=== PATIENT | male | born 1950 | race Caucasian/White ===

== ENCOUNTER 2017-01-05 04:26 | Inpatient (IN) | payer OTHER ==
[2017-01-04 14:10] LABS: PATH.CAST-FLAG NOT PRESENT; SPERM-FLAG NOT PRESENT; SRC-FLAG NOT PRESENT; XTAL-FLAG NOT PRESENT; YLC-FLAG NOT PRESENT
[2017-01-04 14:16] LABS: ASPARTATE AMINO TRANSFERASE 18 U/L (15-37); BLOOD UREA NITROGEN 19 mg/dL (7-18)
[~2017-01-05] VITALS: Ht 182.9 cm; Wt 103.8 kg
[~2017-01-05 04:26] MED LIST: LEVO750T26 PO; OXYC-302 PO; PHEN100C PO
[2017-01-05] MEDS ORDERED: ALBUMIN HUMAN 5% 500 ML IV ONE (05:00)
[2017-01-05] MEDS ORDERED: CHLORHEXIDINE MOUTHWASH 15 ML UDC MM SCH (05:00)
[2017-01-05] MEDS ORDERED: DO NOT GIVE MC SCH (05:00)
[2017-01-05 05:11] VITALS: BP_SYST 162; BP_SYST 163; BP_DIAS 88; BP_DIAS 89
[2017-01-05] MEDS ORDERED: MUPIROCIN OINT 2%, 22GM TP ONE (05:30)
[2017-01-05] MEDS ORDERED: INSULIN ASPART 100 UNITS/ML, PEN SQ-INSULIN SCH (06:00)
[2017-01-05] MEDS: SODIUM CHLORIDE FLUSH 10ML SYR IVF SCH ×3 (06:15→21:32)
[2017-01-05] MEDS ORDERED: MIDAZOLAM 10MG/2 ML ONE (06:47)
[2017-01-05] MEDS ORDERED: FENTANYL PF 1000 MCG/20ML ONE (06:47)
[2017-01-05] MEDS ORDERED: ROCURONIUM 10 MG/ML ONE (07:27)
[2017-01-05] MEDS ORDERED: PROPOFOL 10 MG/ML, 20ML ONE (07:27)
[2017-01-05] MEDS ORDERED: EPINEPHRINE 2 MG in SODIUM CHLORIDE 0.9% 248 ML IV SCH (07:30)
[2017-01-05] MEDS ORDERED: POTASSIUM CHLORIDE 80 MEQ, SODIUM BICARBONATE 8.4% 10 MEQ, MAGNESIUM SULFATE 0.5 GM, LI... IV PRN (07:30)
[2017-01-05] MEDS ORDERED: CEFUROXIME 1.5 GM in SODIUM CHLORIDE 0.9% 50 ML IVPB PRN (07:30)
[2017-01-05] MEDS ORDERED: PHENYLEPHRINE 10 MG in SODIUM CHLORIDE 0.9% 249 ML IV PRN ×2 (07:30→11:41)
[2017-01-05] MEDS ORDERED: DEXMEDETOMIDINE 200 MCG in SODIUM CHLORIDE 0.9% 48 ML IV SCH (07:30)
[2017-01-05] MEDS ORDERED: MANNITOL PMX 20% 500 ML IVPB PRN (07:30)
[2017-01-05] MEDS ORDERED: REGULAR INSULIN 62.5 UNITS in SODIUM CHLORIDE 0.9% 249.375 ML IV PRN ×2 (07:30→11:41)
[2017-01-05] MEDS ORDERED: VANCOMYCIN 1,600 MG in SODIUM CHLORIDE 0.9% 250 ML IV PRN (07:30)
[2017-01-05] MEDS ORDERED: FENTANYL PF 250 MCG/5ML ONE (09:26)
[2017-01-05] MEDS ORDERED: CLEVIDIPINE 50 ML IV ONE (10:12)
[2017-01-05] MEDS ORDERED: CLEVIDIPINE 50 ML IV PRN (11:41)
[2017-01-05] MEDS ORDERED: SODIUM CHLORIDE 0.9% 1,000 ML IV PRN (11:41)
[2017-01-05] MEDS ORDERED: NITROGLYCERIN/D5W PMX 250 ML IV PRN (11:41)
[2017-01-05] MEDS ORDERED: DOBUTAMINE 250 MG in SODIUM CHLORIDE 0.9% 230 ML IV PRN (11:41)
[2017-01-05] MEDS ORDERED: DEXMEDETOMIDINE 200 MCG in SODIUM CHLORIDE 0.9% 48 ML IV PRN (11:41)
[2017-01-05] MEDS ORDERED: CALCIUM CHLORIDE 10%, 10ML SYR ONE (12:00)
[2017-01-05] MEDS ORDERED: BISACODYL 10 MG SUPP PR PRN (12:00)
[2017-01-05] MEDS ORDERED: ALBUMIN HUMAN 25% 50 ML ONE (12:00)
[2017-01-05] MEDS ORDERED: GLUCAGON 1 MG IM PRN (12:00)
[2017-01-05] MEDS ORDERED: MEPERIDINE/PF 25MG/0.5ML IVPush PRN (12:00)
[2017-01-05] MEDS ORDERED: BISACODYL 5 MG EC TABLET PO PRN (12:00)
[2017-01-05] MEDS ORDERED: LACTATED RINGERS 500 ML IV PRN (12:00)
[2017-01-05] MEDS ORDERED: SODIUM BICARB 8.4%, 50ML SYRINGE ONE (12:00)
[2017-01-05] MEDS ORDERED: EPINEPHRINE 2 MG in SODIUM CHLORIDE 0.9% 248 ML IV PRN (12:00)
[2017-01-05] MEDS ORDERED: ONDANSETRON 2MG/ML, 2ML IVPush PRN (12:00)
[2017-01-05] MEDS ORDERED: PROCHLORPERAZINE 5 MG/ML, 2ML IVPush PRN (12:00)
[2017-01-05] MEDS: KSCALE TO 4.5 IV SCH ×3 (12:00→23:57)
[2017-01-05] MEDS ORDERED: DEXTROSE 50%, 50ML SYRINGE IVPush PRN (12:00)
[2017-01-05] MEDS ORDERED: PROTAMINE SULFATE 10 MG/ML, 25ML ONE (12:00)
[2017-01-05] MEDS ORDERED: ACETAMINOPHEN 650 MG SUPP PR PRN (12:00)
[2017-01-05] MEDS ORDERED: DEXTROSE 4 GM TAB.CHEW PO PRN (12:00)
[2017-01-05] MEDS ORDERED: AMIODARONE 50 MG/ML, 3ML ONE (12:01)
[2017-01-05] MEDS ORDERED: HEPARIN 1,000 UNITS/ML, 30ML ONE (12:01)
[2017-01-05] MEDS ORDERED: LIDOCAINE 2% 100MG/5ML SYRINGE ONE (12:01)
[2017-01-05] MEDS ORDERED: AMINOCAPROIC ACID 250 MG/ML, 20ML ONE (12:01)
[2017-01-05] MEDS ORDERED: SODIUM BICARBONATE 1 MEQ/ML, 50ML VIAL ONE (12:01)
[2017-01-05] MEDS ORDERED: methylPREDNISolone SOD SUCC 125 MG/2 ML ONE (12:02)
[2017-01-05 12:17] LABS: ABG COLLECTION SITE ARTERIAL LINE
[2017-01-05] MEDS ORDERED: POTASSIUM CHLORIDE PMX 100 ML IV ONE (13:00)
[2017-01-05] MEDS: SODIUM BICARB 8.4%, 50ML SYRINGE IV PRN ×3 (13:02→15:13)
[2017-01-05] MEDS: MAGNESIUM SULFATE 1 GM in SODIUM CHLORIDE 0.9% 50 ML IVPB SCH (13:17)
[2017-01-05] MEDS: MIDAZOLAM 1 MG/ML, 5ML IVPush PRN ×4 (14:22→23:13)
[2017-01-05] MEDS: morphine SULFATE 10 MG/ML, 1ML IVPush PRN ×5 (14:22→23:12)
[2017-01-05] MEDS ORDERED: FUROSEMIDE 20 MG/2 ML ONE (15:12)
[2017-01-05] MEDS ORDERED: FUROSEMIDE 20 MG/2 ML IV ONE (15:30)
[2017-01-05] MEDS: DEXMEDETOMIDINE 400 MCG in SODIUM CHLORIDE 0.9% 96 ML IV PRN (18:14)
[2017-01-05] MEDS: CEFUROXIME 1.5 GM in SODIUM CHLORIDE 0.9% 50 ML IVPB SCH (19:38)
[2017-01-05] MEDS: VANCOMYCIN 1,600 MG in SODIUM CHLORIDE 0.9% 250 ML IVPB SCH (20:38)
[2017-01-05] MEDS: DOCUSATE 100 MG CAPSULE PO SCH (21:00)
[2017-01-05] MEDS: HYDROcodone/APAP 10/325 MG TABLET PO PRN (21:11)
[2017-01-05] MEDS: MUPIROCIN OINT 2%, 22GM NAS SCH (21:32)
[2017-01-05] MEDS ORDERED: LIDOCAINE 1%, 10ML INFIL ONE (23:30)
[2017-01-05] MEDS: ALBUTEROL/IPRATROPIUM 2.5MG/0.5MG, 3 ML NPPB SCH (23:30)
[2017-01-05 23:38] LABS: ABG COLLECTION SITE NOT DOCUMENTED
[2017-01-06] MEDS ORDERED: FUROSEMIDE 40 MG/4 ML IV ONE ×2 (00:30→08:00)
[2017-01-06] MEDS ORDERED: FUROSEMIDE 40 MG/4 ML ONE (00:37)
[2017-01-06] MEDS: HYDROcodone/APAP 10/325 MG TABLET PO PRN ×3 (00:41→15:54)
[2017-01-06] MEDS: morphine SULFATE 10 MG/ML, 1ML IVPush PRN ×9 (00:42→23:34)
[2017-01-06] MEDS: MIDAZOLAM 1 MG/ML, 5ML IVPush PRN ×5 (00:42→13:13)
[2017-01-06] MEDS: DEXMEDETOMIDINE 400 MCG in SODIUM CHLORIDE 0.9% 96 ML IV PRN ×3 (01:06→08:38)
[2017-01-06] MEDS ORDERED: LIDOCAINE 1%, 2ML ENDO PRN (01:30)
[2017-01-06] MEDS: ALBUTEROL/IPRATROPIUM 2.5MG/0.5MG, 3 ML NPPB SCH ×6 (03:30→23:08)
[2017-01-06 05:00] VITALS: BP 119/61
[2017-01-06 05:25] LABS: ABG COLLECTION SITE NOT DOCUMENTED
[2017-01-06 05:49] LABS: BLOOD UREA NITROGEN 23 mg/dL (7-18)
[2017-01-06] MEDS: KSCALE TO 4.5 IV SCH ×3 (06:00→18:00)
[2017-01-06] MEDS: CEFUROXIME 1.5 GM in SODIUM CHLORIDE 0.9% 50 ML IVPB SCH (06:27)
[2017-01-06] MEDS ORDERED: POTASSIUM CHLORIDE PMX 100 ML IV ONE (06:30)
[2017-01-06 06:45] LABS: DIFF TOTAL CELLS COUNTED 100 CELL DIFF
[2017-01-06 06:47] LABS: LARGE PLATELETS 1+; VERIFY COUNTS? YES
[2017-01-06] MEDS ORDERED: CALCIUM CHLORIDE 13.6 MEQ in SODIUM CHLORIDE 0.9% 100 ML IV ONE (08:00)
[2017-01-06] MEDS: VANCOMYCIN 1,600 MG in SODIUM CHLORIDE 0.9% 250 ML IVPB SCH (08:38)
[2017-01-06] MEDS: CHLORHEXIDINE MOUTHWASH 15 ML UDC MM SCH ×2 (09:00→20:20)
[2017-01-06] MEDS: SODIUM CHLORIDE FLUSH 10ML SYR IVF SCH ×4 (09:00→20:20)
[2017-01-06] MEDS: ASPIRIN 81 MG TABLET EC PO SCH (09:00)
[2017-01-06] MEDS: DOCUSATE 100 MG CAPSULE PO SCH ×2 (09:00→20:21)
[2017-01-06] MEDS: PANTOPRAZOLE 40 MG IV IVPush SCH (09:35)
[2017-01-06] MEDS: MUPIROCIN OINT 2%, 22GM NAS SCH ×2 (09:35→20:21)
[2017-01-06] MEDS: CEFTRIAXONE PMX 1GM/50ML 50 ML IV SCH (10:02)
[2017-01-06] MEDS: MAGNESIUM SULFATE 1 GM in SODIUM CHLORIDE 0.9% 50 ML IVPB SCH (13:33)
[2017-01-06] MEDS: PROPOFOL 100 ML IV PRN ×3 (15:02→23:21)
[2017-01-06] MEDS: PHENYTOIN 125 MG/5 ML ORAL SUSP NG SCH ×2 (15:11→20:20)
[2017-01-06] MEDS: INSULIN ASPART 100 UNITS/ML, PEN SQ-INSULIN PRN ×2 (16:33→23:34)
[2017-01-06] MEDS ORDERED: WARFARIN 5 MG TABLET PO-COUM ONE (18:00)
[2017-01-06] MEDS ORDERED: PHENYTOIN 100 MG CAPSULE PO SCH (21:00)
[2017-01-07] MEDS: ALBUTEROL/IPRATROPIUM 2.5MG/0.5MG, 3 ML NPPB SCH ×6 (02:41→22:31)
[2017-01-07] MEDS: MIDAZOLAM 1 MG/ML, 5ML IVPush PRN (03:03)
[2017-01-07] MEDS: morphine SULFATE 10 MG/ML, 1ML IVPush PRN (03:04)
[2017-01-07 04:18] LABS: ABG COLLECTION SITE RIGHT RADIAL; COLLATERAL CIRCULATION TESTING NORMAL
[2017-01-07] MEDS: INSULIN ASPART 100 UNITS/ML, PEN SQ-INSULIN PRN ×3 (04:45→23:16)
[2017-01-07 04:51] LABS: BLOOD UREA NITROGEN 29 mg/dL (7-18)
[2017-01-07 05:00] VITALS: BP 122/60
[2017-01-07] MEDS: PROPOFOL 100 ML IV PRN ×5 (05:48→21:51)
[2017-01-07] MEDS: SODIUM CHLORIDE FLUSH 10ML SYR IVF SCH ×4 (09:00→21:07)
[2017-01-07] MEDS: ASPIRIN 81 MG TABLET EC PO SCH (09:00)
[2017-01-07] MEDS: CHLORHEXIDINE MOUTHWASH 15 ML UDC MM SCH ×2 (09:00→21:00)
[2017-01-07] MEDS: DOCUSATE 100 MG CAPSULE PO SCH ×2 (09:00→21:00)
[2017-01-07] MEDS ORDERED: POTASSIUM CHLORIDE 20 MEQ PACKET PO ONE (09:55)
[2017-01-07] MEDS ORDERED: FUROSEMIDE 40 MG/4 ML ONE (09:56)
[2017-01-07] MEDS ORDERED: FUROSEMIDE 40 MG/4 ML IV ONE (10:00)
[2017-01-07] MEDS: HYDROcodone/APAP 10/325 MG TABLET PO PRN (10:04)
[2017-01-07] MEDS: PANTOPRAZOLE 40 MG IV IVPush SCH (10:17)
[2017-01-07] MEDS: MUPIROCIN OINT 2%, 22GM NAS SCH ×2 (10:17→21:00)
[2017-01-07] MEDS: CEFTRIAXONE PMX 1GM/50ML 50 ML IV SCH (10:17)
[2017-01-07] MEDS: PHENYTOIN 125 MG/5 ML ORAL SUSP NG SCH ×2 (10:18→21:07)
[2017-01-07] MEDS: MAGNESIUM SULFATE 1 GM in SODIUM CHLORIDE 0.9% 50 ML IVPB SCH (13:55)
[2017-01-07] MEDS: ACETAMINOPHEN 325 MG TABLET PO PRN (16:22)
[2017-01-07] MEDS: POTASSIUM CHLORIDE 20 MEQ PACKET PO SCH (17:39)
[2017-01-07] MEDS: FUROSEMIDE 40 MG/4 ML IV SCH (17:39)
[2017-01-07] MEDS ORDERED: WARFARIN 5 MG TABLET PO-COUM ONE (18:00)
[2017-01-08] MEDS: morphine SULFATE 10 MG/ML, 1ML IVPush PRN (01:27)
[2017-01-08] MEDS: PROPOFOL 100 ML IV PRN ×2 (02:34→06:14)
[2017-01-08] MEDS: ALBUTEROL/IPRATROPIUM 2.5MG/0.5MG, 3 ML NPPB SCH ×5 (03:07→22:48)
[2017-01-08 04:48] LABS: ABG COLLECTION SITE LEFT RADIAL; COLLATERAL CIRCULATION TESTING NORMAL
[2017-01-08 05:02] VITALS: BP 135/77
[2017-01-08 05:11] LABS: BLOOD UREA NITROGEN 28 mg/dL (7-18)
[2017-01-08] MEDS: INSULIN ASPART 100 UNITS/ML, PEN SQ-INSULIN PRN ×2 (05:28→23:23)
[2017-01-08] MEDS: SODIUM CHLORIDE FLUSH 10ML SYR IVF SCH ×4 (08:12→21:16)
[2017-01-08] MEDS: DOCUSATE 100 MG CAPSULE PO SCH ×2 (08:53→21:16)
[2017-01-08] MEDS: PANTOPRAZOLE 40 MG IV IVPush SCH (08:53)
[2017-01-08] MEDS: PHENYTOIN 125 MG/5 ML ORAL SUSP NG SCH ×2 (08:53→21:16)
[2017-01-08] MEDS: ASPIRIN 81 MG TABLET EC PO SCH (08:54)
[2017-01-08] MEDS: POTASSIUM CHLORIDE 20 MEQ PACKET PO SCH ×2 (08:54→18:41)
[2017-01-08] MEDS: FUROSEMIDE 40 MG/4 ML IV SCH ×2 (08:54→18:44)
[2017-01-08] MEDS: CEFTRIAXONE PMX 1GM/50ML 50 ML IV SCH (08:55)
[2017-01-08] MEDS: MUPIROCIN OINT 2%, 22GM NAS SCH ×2 (08:55→21:00)
[2017-01-08] MEDS: LISINOPRIL 5 MG TABLET PO SCH (10:00)
[2017-01-08] MEDS ORDERED: POTASSIUM CHLORIDE 20 MEQ TAB.ER.PRT PO ONE (10:30)
[2017-01-08] MEDS: HYDROcodone/APAP 10/325 MG TABLET PO PRN ×3 (10:32→22:04)
[2017-01-08] MEDS: LORazepam 2 MG/ML, 1ML IVPush PRN ×2 (12:43→20:22)
[2017-01-08] MEDS ORDERED: AMIODARONE 150 MG in DEXTROSE 5% 100 ML IV ONE ×2 (13:30→18:00)
[2017-01-08] MEDS ORDERED: AMIODARONE 900 MG in DEXTROSE 5% 482 ML IV PRN (13:30)
[2017-01-08] MEDS ORDERED: FILTER 0.22 MICRON IV PRN (14:00)
[2017-01-08] MEDS ORDERED: WARFARIN 7.5 MG TABLET PO-COUM ONE (18:00)
[2017-01-08] MEDS ORDERED: METOPROLOL 1 MG/ML, 5ML IVPush ONE (20:00)
[2017-01-08] MEDS: ACETAMINOPHEN 325 MG TABLET PO PRN (22:04)
[2017-01-09] MEDS: ALBUTEROL/IPRATROPIUM 2.5MG/0.5MG, 3 ML NPPB SCH ×6 (02:22→22:52)
[2017-01-09] MEDS: HYDROcodone/APAP 10/325 MG TABLET PO PRN ×2 (02:59→12:43)
[2017-01-09 04:47] LABS: BLOOD UREA NITROGEN 32 mg/dL (7-18)
[2017-01-09 05:00] VITALS: BP 142/83
[2017-01-09] MEDS: INSULIN ASPART 100 UNITS/ML, PEN SQ-INSULIN PRN (05:27)
[2017-01-09] MEDS: POTASSIUM CHLORIDE 20 MEQ PACKET PO SCH ×2 (07:59→18:09)
[2017-01-09] MEDS: FUROSEMIDE 40 MG/4 ML IV SCH ×2 (07:59→18:09)
[2017-01-09] MEDS: SODIUM CHLORIDE FLUSH 10ML SYR IVF SCH ×5 (08:00→20:13)
[2017-01-09] MEDS ORDERED: MAGNESIUM HYDROXIDE 8%, 30ML UDC PO PRN (08:30)
[2017-01-09] MEDS: OXYcodone IR 5MG TABLET PO PRN ×2 (09:35→15:02)
[2017-01-09] MEDS: PHENYTOIN 100 MG CAPSULE PO SCH ×2 (09:36→21:00)
[2017-01-09] MEDS: ASPIRIN 81 MG TABLET EC PO SCH (09:36)
[2017-01-09] MEDS: DOCUSATE 100 MG CAPSULE PO SCH ×2 (09:37→20:13)
[2017-01-09] MEDS: METOPROLOL TARTRATE 25 MG TABLET PO SCH ×2 (09:37→18:09)
[2017-01-09] MEDS: LISINOPRIL 10 MG TABLET PO SCH ×2 (09:37→20:21)
[2017-01-09] MEDS: AMIODARONE 200 MG TABLET PO SCH ×2 (09:38→20:14)
[2017-01-09] MEDS: CEFTRIAXONE PMX 1GM/50ML 50 ML IV SCH (10:17)
[2017-01-09] MEDS: MUPIROCIN OINT 2%, 22GM NAS SCH ×2 (10:18→20:13)
[2017-01-09] MEDS ORDERED: WARFARIN 10 MG TABLET PO-COUM ONE (18:00)
[2017-01-09] MEDS: LISINOPRIL 5 MG TABLET PO SCH (20:15)
[2017-01-10] MEDS ORDERED: ALBUTEROL/IPRATROPIUM 2.5MG/0.5MG, 3 ML NPPB PRN (01:30)
[2017-01-10 04:00] VITALS: BP 125/70
[2017-01-10 04:28] LABS: BLOOD UREA NITROGEN 42 mg/dL (7-18)
[2017-01-10] MEDS: METOPROLOL TARTRATE 25 MG TABLET PO SCH ×2 (05:27→18:38)
[2017-01-10] MEDS: ALBUTEROL/IPRATROPIUM 2.5MG/0.5MG, 3 ML NPPB SCH ×4 (06:47→21:10)
[2017-01-10 08:00] VITALS: BP 125/75
[2017-01-10] MEDS: FUROSEMIDE 40 MG/4 ML IV SCH ×2 (08:01→17:47)
[2017-01-10] MEDS: AMIODARONE 200 MG TABLET PO SCH ×2 (08:01→21:33)
[2017-01-10] MEDS: POTASSIUM CHLORIDE 20 MEQ PACKET PO SCH ×2 (08:01→17:00)
[2017-01-10] MEDS: SODIUM CHLORIDE FLUSH 10ML SYR IVF SCH ×6 (08:02→21:33)
[2017-01-10] MEDS: PHENYTOIN 100 MG CAPSULE PO SCH ×2 (08:02→21:00)
[2017-01-10] MEDS: MUPIROCIN OINT 2%, 22GM NAS SCH (08:02)
[2017-01-10] MEDS: ASPIRIN 81 MG TABLET EC PO SCH (08:03)
[2017-01-10] MEDS: DOCUSATE 100 MG CAPSULE PO SCH ×2 (08:03→21:00)
[2017-01-10] MEDS: LISINOPRIL 10 MG TABLET PO SCH ×2 (08:03→21:35)
[2017-01-10] MEDS ORDERED: HOLD COUMADIN MC PRN (08:30)
[2017-01-10] MEDS: HYDROcodone/APAP 10/325 MG TABLET PO PRN (09:30)
[2017-01-10] MEDS ORDERED: CALCIUM CARBONATE 500 MG TAB.CHEW PO PRN (09:30)
[2017-01-10] MEDS: KETOROLAC 30 MG/1 ML IVPush SCH ×3 (09:30→21:30)
[2017-01-10] MEDS: CEFTRIAXONE PMX 1GM/50ML 50 ML IV SCH (09:30)
[2017-01-10 14:57] VITALS: BP 120/73
[2017-01-10] MEDS ORDERED: LOPERAMIDE 2 MG CAPSULE PO PRN (17:30)
[2017-01-10 20:03] VITALS: BP 125/65
[2017-01-11 04:00] VITALS: BP 116/69
[2017-01-11] MEDS: KETOROLAC 30 MG/1 ML IVPush SCH ×2 (04:38→09:04)
[2017-01-11] MEDS: METOPROLOL TARTRATE 25 MG TABLET PO SCH ×2 (06:16→16:55)
[2017-01-11 06:39] VITALS: BP 135/79
[2017-01-11 06:47] LABS: BLOOD UREA NITROGEN 46 mg/dL (7-18)
[2017-01-11] MEDS: ALBUTEROL/IPRATROPIUM 2.5MG/0.5MG, 3 ML NPPB SCH (07:00)
[2017-01-11] MEDS: LISINOPRIL 10 MG TABLET PO SCH ×2 (08:59→21:09)
[2017-01-11] MEDS: DOCUSATE 100 MG CAPSULE PO SCH ×2 (09:00→21:00)
[2017-01-11] MEDS: SODIUM CHLORIDE FLUSH 10ML SYR IVF SCH ×6 (09:00→21:09)
[2017-01-11] MEDS: PHENYTOIN 100 MG CAPSULE PO SCH ×2 (09:00→21:08)
[2017-01-11] MEDS: ASPIRIN 81 MG TABLET EC PO SCH (09:00)
[2017-01-11] MEDS: AMIODARONE 200 MG TABLET PO SCH ×2 (09:01→21:09)
[2017-01-11] MEDS: CEFTRIAXONE PMX 1GM/50ML 50 ML IV SCH (09:03)
[2017-01-11] MEDS: POTASSIUM CHLORIDE 20 MEQ PACKET PO SCH ×2 (09:03→16:50)
[2017-01-11] MEDS: FUROSEMIDE 40 MG/4 ML IV SCH ×2 (09:03→16:49)
[2017-01-11] MEDS: CHLORHEXIDINE MOUTHWASH 15 ML UDC MM SCH ×3 (13:52→21:10)
[2017-01-11 14:24] VITALS: BP 137/69
[2017-01-11] MEDS ORDERED: ALBUTEROL/IPRATROPIUM 2.5MG/0.5MG, 3 ML NPPB PRN (14:30)
[2017-01-11] MEDS: HYDROcodone/APAP 10/325 MG TABLET PO PRN (16:49)
[2017-01-11 18:49] VITALS: BP 145/76
[2017-01-11] MEDS: OXYcodone IR 5MG TABLET PO PRN (19:40)
[2017-01-11 21:03] VITALS: BP 114/64
[2017-01-12 01:32] VITALS: BP 123/74
[2017-01-12] MEDS: HYDROcodone/APAP 10/325 MG TABLET PO PRN ×3 (02:51→22:35)
[2017-01-12 05:51] VITALS: BP 110/67
[2017-01-12 06:07] LABS: BLOOD UREA NITROGEN 35 mg/dL (7-18)
[2017-01-12 06:55] VITALS: BP 146/75
[2017-01-12] MEDS: DOCUSATE 100 MG CAPSULE PO SCH ×2 (09:00→22:43)
[2017-01-12] MEDS: SODIUM CHLORIDE FLUSH 10ML SYR IVF SCH ×6 (09:00→22:43)
[2017-01-12] MEDS: POTASSIUM CHLORIDE 20 MEQ PACKET PO SCH ×2 (09:11→17:06)
[2017-01-12] MEDS: PHENYTOIN 100 MG CAPSULE PO SCH ×2 (09:12→22:42)
[2017-01-12] MEDS: ASPIRIN 81 MG TABLET EC PO SCH (09:12)
[2017-01-12] MEDS: LISINOPRIL 10 MG TABLET PO SCH ×2 (09:12→22:42)
[2017-01-12] MEDS: METOPROLOL TARTRATE 25 MG TABLET PO SCH ×2 (09:12→17:06)
[2017-01-12] MEDS: CHLORHEXIDINE MOUTHWASH 15 ML UDC MM SCH ×3 (09:13→22:43)
[2017-01-12] MEDS: AMIODARONE 200 MG TABLET PO SCH ×2 (09:13→22:43)
[2017-01-12] MEDS: FUROSEMIDE 40 MG/4 ML IV SCH ×2 (09:13→17:06)
[2017-01-12] MEDS: CEFTRIAXONE PMX 1GM/50ML 50 ML IV SCH (09:13)
[2017-01-12] MEDS ORDERED: POTASSIUM CHLORIDE 20 MEQ TAB.ER.PRT PO ONE (09:30)
[2017-01-12 13:32] VITALS: BP 122/71
[2017-01-12] MEDS ORDERED: WARFARIN 1 MG TABLET PO-COUM SCH (18:00)
[2017-01-12 19:09] VITALS: BP 117/70
[2017-01-13 01:19] VITALS: BP 133/71
[2017-01-13] MEDS: METOPROLOL TARTRATE 25 MG TABLET PO SCH (05:17)
[2017-01-13 06:39] LABS: BLOOD UREA NITROGEN 30 mg/dL (7-18)
[2017-01-13 06:50] VITALS: BP 112/66
[2017-01-13] MEDS: CHLORHEXIDINE MOUTHWASH 15 ML UDC MM SCH (08:02)
[2017-01-13] MEDS: ASPIRIN 81 MG TABLET EC PO SCH (08:03)
[2017-01-13] MEDS: PHENYTOIN 100 MG CAPSULE PO SCH (08:03)
[2017-01-13] MEDS: LISINOPRIL 10 MG TABLET PO SCH (08:03)
[2017-01-13] MEDS: DOCUSATE 100 MG CAPSULE PO SCH (08:04)
[2017-01-13] MEDS: FUROSEMIDE 40 MG/4 ML IV SCH (08:04)
[2017-01-13] MEDS: SODIUM CHLORIDE FLUSH 10ML SYR IVF SCH ×3 (08:04→08:05)
[2017-01-13] MEDS: POTASSIUM CHLORIDE 20 MEQ PACKET PO SCH (08:04)
[2017-01-13] MEDS: AMIODARONE 200 MG TABLET PO SCH (08:04)
[2017-01-13] MEDS ORDERED: METO25TA35 PO (09:15)
[2017-01-13] MEDS ORDERED: AMIO200T42 PO (09:15)
[2017-01-13] MEDS ORDERED: POTA20PA8 PO (09:15)
[2017-01-13] MEDS ORDERED: ASPI-621 PO (09:15)
[2017-01-13] MEDS ORDERED: FURO40TA6 PO (09:15)
[2017-01-13] MEDS ORDERED: LISI-167 PO (09:15)
[2017-01-13] MEDS ORDERED: WARF2TAB PO-COUM (09:15)
[2017-01-13] MEDS: CEFTRIAXONE PMX 1GM/50ML 50 ML IV SCH (09:51)
[2017-01-13] MEDS ORDERED: WARFARIN 2 MG TABLET PO-COUM SCH (18:00)
== END 2017-01-13 13:52 | disposition home health service (06) | DRG 219 ==
LOC: 5SO 04:26 → CSU 08:53 → CCU 01-06 17:06 → 5SO 01-10 09:56
PROVIDERS: ADMIT Thoracic Surgery (Cardiothoracic Vascular Surgery); ATTEND Thoracic Surgery (Cardiothoracic Vascular Surgery)
PROC: 02UX0JZ Supplement Thoracic Aorta, Ascending/Arch with Synthetic Substitute, Open Approach (ICD-10-PCS; 2017-01-05)
PROC: 5A1221Z Performance of Cardiac Output, Continuous (ICD-10-PCS; 2017-01-05)
PROC: B24BZZ4 Ultrasonography of Heart with Aorta, Transesophageal (ICD-10-PCS; 2017-01-05)
PROC: 0BH17EZ Insertion of Endotracheal Airway into Trachea, Via Natural or Artificial Opening (ICD-10-PCS; 2017-01-05)
PROC: 5A1945Z Respiratory Ventilation, 24-96 Consecutive Hours (ICD-10-PCS; 2017-01-05)
PROC: 30233R1 Transfusion of Nonautologous Platelets into Peripheral Vein, Percutaneous Approach (ICD-10-PCS; 2017-01-05)
PROC: 0T9B70Z Drainage of Bladder with Drainage Device, Via Natural or Artificial Opening (ICD-10-PCS; 2017-01-05)
PROC: 5A1223Z Performance of Cardiac Pacing, Continuous (ICD-10-PCS; 2017-01-05)
PROC: 02RF0JZ Replacement of Aortic Valve with Synthetic Substitute, Open Approach (ICD-10-PCS; principal; 2017-01-05 07:30)
DX: I35.1 Nonrheumatic aortic (valve) insufficiency (principal); J96.90 Respiratory failure, unspecified, unspecified whether with hypoxia or hypercapnia; J81.1 Chronic pulmonary edema; Z99.11 Dependence on respirator [ventilator] status; I71.2 Thoracic aortic aneurysm, without rupture; I48.0 Paroxysmal atrial fibrillation; G40.909 Epilepsy, unspecified, not intractable, without status epilepticus; D72.829 Elevated white blood cell count, unspecified; I10 Essential (primary) hypertension; F12.90 Cannabis use, unspecified, uncomplicated; I71.4 Abdominal aortic aneurysm, without rupture; R45.1 Restlessness and agitation; J44.9 Chronic obstructive pulmonary disease, unspecified; Z85.46 Personal history of malignant neoplasm of prostate; Z90.79 Acquired absence of other genital organ(s); Z95.2 Presence of prosthetic heart valve; Z79.01 Long term (current) use of anticoagulants
CPT/HCPCS: 36415; 36600; 71010; 71020; 80048; 80053; 81001; 82040; 82330; 82800; 82803; 82810; 82947; 82962; 83036; 83735; 84132; 84295; 85014; 85018; 85025; 85049; 85347; 85610; 85730; 86850; 86900; 86923; 87040; 87070; 87081; 87086; 87205; 88304; 88305; 88341; 88342; 93005; 93312; 93321; 93325; 93880; 94002; 94003; 94150; 94640; C1768; J0696; J0697; J1644; J1815; J1885; J1940; J2250; J2704; J2720; J3010; J3370; J3475; J3480; J3490; J7620; P9045; P9047; C1751; C1760; C1781; C9113; C9248; G0461; J0171; J0282; J2060; J2270; J2370; J2930; J7030; J7050; J7060; P9035

== ENCOUNTER 2017-02-27 23:49 | Emergency (ER) | payer OTHER ==
[~2017-02-27] VITALS: Ht 182.9 cm; Wt 106.5 kg
[~2017-02-27 23:49] MED LIST changes: +AMIO200T42 PO; +ASPI-621 PO; +FURO40TA6 PO; +LISI-167 PO; +METO25TA35 PO; +POTA20PA8 PO; +WARF2TAB PO-COUM
[2017-02-28] MEDS ORDERED: SODIUM CHLORIDE FLUSH 10ML SYR IVF ONE (00:30)
[2017-02-28 00:53] LABS: ASPARTATE AMINO TRANSFERASE 21 U/L (15-37); BLOOD UREA NITROGEN 18 mg/dL (7-18)
[2017-02-28 00:57] LABS: IS PT STATUS REG ER OR PRE ER? YES
[2017-02-28 01:06] VITALS: BP 125/72
== END 2017-02-28 01:50 | disposition home or self-care (01) ==
LOC: ED 23:59
DX: J30.2 Other seasonal allergic rhinitis (principal); R05 Cough
CPT/HCPCS: 36415; 71020; 80053; 83880; 84484; 85025; 85610; 85730; 93005; 99285

== ENCOUNTER 2017-03-14 09:21 | Emergency (ER) | payer OTHER ==
[~2017-03-14] VITALS: Ht 182.9 cm; Wt 105.3 kg
[2017-03-14 11:44] LABS: BLOOD UREA NITROGEN 18 mg/dL (7-18)
[2017-03-14 12:19] VITALS: BP 148/91
== END 2017-03-14 12:46 | disposition home or self-care (01) ==
LOC: ED 11:28
DX: R07.89 Other chest pain (principal); I11.0 Hypertensive heart disease with heart failure; I50.9 Heart failure, unspecified; Z79.01 Long term (current) use of anticoagulants
CPT/HCPCS: 36415; 71010; 80048; 82040; 84484; 85025; 85610; 93005; 99285

== ENCOUNTER 2017-08-13 07:30 | Inpatient (IN) | payer OTHER ==
[~2017-08-13] VITALS: Ht 182.9 cm; Wt 99.5 kg
[~2017-08-13 07:30] MED LIST changes: +POTA20PA25 PO; -POTA20PA8 PO
[2017-09-10] MEDS ORDERED: THROMBIN 5,000 UNIT VIAL TP ONE ×2 (07:31→09:45)
[2017-09-10] MEDS ORDERED: PROTAMINE SULFATE 10 MG/ML, 5ML ONE (07:31)
[2017-09-10] MEDS ORDERED: HEPARIN 1,000 UNITS/ML, 10ML ONE (07:31)
[2017-09-10] MEDS ORDERED: BUPIVACAINE/PF 0.5% ONE (07:31)
[2017-09-10] MEDS ORDERED: LACTATED RINGERS 1,000 ML IV SCH (08:06)
[2017-09-10] MEDS ORDERED: LIDOCAINE 1%, 2ML ONE (08:12)
[2017-09-10] MEDS ORDERED: LIDOCAINE 1%, 2ML SQ PRN (08:30)
[2017-09-10] MEDS ORDERED: ONDANSETRON 2MG/ML, 2ML ONE (09:05)
[2017-09-10] MEDS ORDERED: NEOSTIGMINE 1 MG/ML, 10ML ONE (09:05)
[2017-09-10] MEDS ORDERED: hydrALAzine 20 MG/ML, 1ML ONE (09:05)
[2017-09-10] MEDS ORDERED: ROCURONIUM 10 MG/ML,10ML ONE (09:05)
[2017-09-10] MEDS ORDERED: PROPOFOL 10 MG/ML, 20ML ONE (09:05)
[2017-09-10] MEDS ORDERED: DEXAMETHASONE 4 MG/ML, 1ML ONE (09:05)
[2017-09-10] MEDS ORDERED: CEFAZOLIN 1,000 MG ONE (09:05)
[2017-09-10] MEDS ORDERED: HEPARIN 1,000 UNITS/ML, 10ML IV ONE (09:41)
[2017-09-10] MEDS ORDERED: VISIPAQUE 270 MG/ML, 50ML BOTTLE ONE (10:44)
[2017-09-10] MEDS ORDERED: VISIPAQUE 270 MG/ML, 150ML BOTTLE ONE (10:44)
[2017-09-10] MEDS ORDERED: LABETALOL 5MG/ML, 20ML IV PRN (11:30)
[2017-09-10] MEDS ORDERED: PROMETHAZINE 25 MG/ML, 1ML IV PRN (11:30)
[2017-09-10] MEDS ORDERED: ALBUTEROL SULFATE 2.5 MG/3 ML NPPB PRN (11:30)
[2017-09-10] MEDS ORDERED: hydrALAzine 20 MG/ML, 1ML IV PRN (11:30)
[2017-09-10] MEDS ORDERED: ONDANSETRON 2MG/ML, 2ML IVPush PRN (11:30)
[2017-09-10] MEDS ORDERED: OXYcodone 5 MG/5 ML ORAL.SOL UDC PO PRN (11:30)
[2017-09-10] MEDS ORDERED: LORazepam 2 MG/ML, 1ML IVPush PRN (11:30)
[2017-09-10] MEDS ORDERED: FENTANYL PF 100 MCG/2ML IV PRN (11:30)
[2017-09-10] MEDS ORDERED: HYDROmorphone 1 MG/ML, 1ML IV PRN (11:30)
[2017-09-10] MEDS ORDERED: MEPERIDINE/PF 25MG/0.5ML IVPush PRN (11:30)
[2017-09-10] MEDS ORDERED: LABETALOL 5MG/ML, 20ML IVPush SCH (13:30)
[2017-09-10] MEDS ORDERED: ONDANSETRON 2MG/ML, 2ML IV PRN (13:30)
[2017-09-10] MEDS ORDERED: MEPERIDINE/PF 50 MG/ML IV PRN (13:30)
[2017-09-10] MEDS: POTASSIUM CHLORIDE 20 MEQ in D5%-0.45% NACL 1,000 ML IV SCH (16:49)
[2017-09-10 19:39] VITALS: BP 150/93
[2017-09-10] MEDS: SODIUM CHLORIDE FLUSH 10ML SYR IVF SCH (21:57)
[2017-09-10 23:57] VITALS: BP 125/77
[2017-09-11] MEDS: POTASSIUM CHLORIDE 20 MEQ in D5%-0.45% NACL 1,000 ML IV SCH (02:29)
[2017-09-11 03:40] VITALS: BP 110/55
[2017-09-11 05:42] LABS: HEMATOCRIT 48.1 % (39.2-51.8); HEMOGLOBIN 16.6 g/dL (13.7-18.0); WHITE BLOOD COUNT 13.8 x10^3/uL (3.4-10)
[2017-09-11 05:47] LABS: BLOOD UREA NITROGEN 17 mg/dL (7-18)
[2017-09-11 07:33] VITALS: BP 124/65
[2017-09-11] MEDS: SODIUM CHLORIDE FLUSH 10ML SYR IVF SCH (09:00)
[2017-09-11] MEDS ORDERED: HYDR-3240 PO (10:19)
[2017-09-11 12:09] VITALS: BP 147/80
== END 2017-09-11 12:51 | disposition home or self-care (01) | DRG 269 ==
LOC: ORIP 09-10 07:41 → 4NOR 09-10 12:15
PROVIDERS: ADMIT Surgery Vascular Surgery; ATTEND Surgery Vascular Surgery
PROC: B41D1ZZ Fluoroscopy of Aorta and Bilateral Lower Extremity Arteries using Low Osmolar Contrast (ICD-10-PCS; 2017-09-10)
PROC: 04V03DZ Restriction of Abdominal Aorta with Intraluminal Device, Percutaneous Approach (ICD-10-PCS; principal; 2017-09-10 09:00)
DX: I71.4 Abdominal aortic aneurysm, without rupture (principal); N52.9 Male erectile dysfunction, unspecified; Z72.0 Tobacco use; Z90.49 Acquired absence of other specified parts of digestive tract; Z90.89 Acquired absence of other organs; Z98.49 Cataract extraction status, unspecified eye; Z90.79 Acquired absence of other genital organ(s)
CPT/HCPCS: 34802; 34812; 34825; 36415; 75952; 80048; 85025; 86850; 86900; 86923; J0690; J1100; J1170; J1644; J2250; J2405; J2704; J2710; J2720; J3010; J3480; J3490; Q9966; C1751; C1768; C1769; C1894; J0360; J7120

== ENCOUNTER 2017-09-15 06:49 | Emergency (ER) | payer OTHER ==
[~2017-09-15] VITALS: Ht 182.9 cm; Wt 104.0 kg
[~2017-09-15 06:49] MED LIST changes: +HYDR-3240 PO
[2017-09-15 08:03] LABS: HEMATOCRIT 47.7 % (39.2-51.8); HEMOGLOBIN 16.3 g/dL (13.7-18.0); WHITE BLOOD COUNT 9.3 x10^3/uL (3.4-10)
[2017-09-15 08:16] LABS: ASPARTATE AMINO TRANSFERASE 19 U/L (15-37); BLOOD UREA NITROGEN 16 mg/dL (7-18)
[2017-09-15 10:10] VITALS: BP 142/74
== END 2017-09-15 10:12 | disposition home or self-care (01) ==
LOC: ED 09:04
DX: S29.012A Strain of muscle and tendon of back wall of thorax, initial encounter (principal); I50.9 Heart failure, unspecified; I11.0 Hypertensive heart disease with heart failure; X58.XXXA Exposure to other specified factors, initial encounter; Y93.89 Activity, other specified; Y92.89 Other specified places as the place of occurrence of the external cause; Y99.9 Unspecified external cause status
CPT/HCPCS: 36415; 74022; 80053; 81003; 83690; 85025; 93005; 99285

== ENCOUNTER 2018-03-04 23:28 | Emergency (ER) | payer OTHER ==
[~2018-03-04] VITALS: Ht 182.9 cm; Wt 103.1 kg
[2018-03-05] MEDS ORDERED: ASPI-515 PO (00:17)
[2018-03-05 00:18] LABS: BASOPHILS # (AUTO) 0.03 x10^3/uL (0-0.1); BASOPHILS % (AUTO) 0 % (0-1); EOSINOPHILS # (AUTO) 0.27 x10^3/uL (0-0.4); EOSINOPHILS % (AUTO) 3 % (1-7); LYMPHOCYTES # (AUTO) 1.73 x10^3/uL (1-3.4); LYMPHOCYTES % (AUTO) 19 % (22-44); MD NO; MEAN CORPUSCULAR HGB CONC 33.3 g/dL (33.2-36.2); MEAN CORPUSCULAR VOLUME 87.2 fL (81-97); MONOCYTES # (AUTO) 0.69 x10^3/uL (0.2-0.8); MONOCYTES % (AUTO) 8 % (2-9); NEUTROPHILS # (AUTO) 6.46 x10^3/uL (1.8-6.8); NEUTROPHILS % (AUTO) 70 % (42-75); PLATELET COUNT 189 x10^3/uL (130-400); RED BLOOD COUNT 5.62 x10^6/uL (4.38-5.82); RED CELL DISTRIBUTION WIDTH 14.5 % (9.4-14.8)
[2018-03-05] MEDS ORDERED: LEUP3.75 SC (00:18)
[2018-03-05 00:35] LABS: ALANINE AMINOTRANSFERASE 45 U/L (12-78); ALBUMIN 3.8 g/dL (3.4-5.0); ANION GAP 7 mmol/L (5-15); CALCIUM 8.9 mg/dL (8.5-10.1); CHLORIDE 108 mmol/L (98-107); CREATININE 1.17 mg/dL (0.7-1.3)
[2018-03-05 00:38] LABS: INTERNATIONAL NORMALIZED RATIO 1.03 (0.93-1.1); PROTHROMBIN TIME 10.6 Seconds (9.6-11.5)
[2018-03-05 00:39] LABS: ALKALINE PHOSPHATASE 124 U/L (45-117); BILIRUBIN,TOTAL 0.6 mg/dL (0.2-1.0); TOTAL PROTEIN 7.8 g/dL (6.4-8.2); TROPONIN I < 0.015 ng/mL (0.000-0.045)
[2018-03-05] MEDS ORDERED: KETOROLAC 30 MG/1 ML ONE (01:22)
[2018-03-05] MEDS ORDERED: ONDANSETRON ODT 4 MG ONE (01:22)
[2018-03-05] MEDS ORDERED: MORPHINE SULFATE 4 MG/ML, 1ML ONE (01:23)
[2018-03-05 01:24] LABS: MICROSCOPIC NOT IND
[2018-03-05 01:25] LABS: CULTURE INDICATED? NO
[2018-03-05] MEDS ORDERED: KETOROLAC 30 MG/1 ML IVPush ONE (01:30)
[2018-03-05] MEDS ORDERED: ONDANSETRON ODT 4 MG PO ONE (01:30)
[2018-03-05] MEDS ORDERED: morphine SULFATE 10 MG/ML, 1ML IVPush ONE (01:30)
[2018-03-05] MEDS ORDERED: OMNIPAQUE 350 MG/ML, 75ML BOTTLE ONE (02:11)
[2018-03-05 03:44] VITALS: BP 156/83
== END 2018-03-05 04:08 | disposition home or self-care (01) ==
LOC: ED 23:59
DX: J98.11 Atelectasis (principal)
CPT/HCPCS: 36415; 71045; 71275; 80053; 81003; 83880; 84484; 85025; 85379; 85610; 85730; 93005; 96374; 96375; 99285; J1885; J2270; Q9967

== ENCOUNTER → 2018-05-15 | Outpatient (CLI) | payer OTHER ==
[~2018-05-15] MED LIST changes: +ASPI-515 PO; +LEUP3.75 SC; +OMNIPAQUE 350 MG/ML, 100ML BOTTLE ONE
== END | disposition home or self-care (01) ==
LOC: CFH 13:46
PROVIDERS: ATTEND Surgery Vascular Surgery
DX: K57.30 Diverticulosis of large intestine without perforation or abscess without bleeding (principal); N32.3 Diverticulum of bladder; K55.069 Acute infarction of intestine, part and extent unspecified; K40.90 Unilateral inguinal hernia, without obstruction or gangrene, not specified as recurrent; I71.4 Abdominal aortic aneurysm, without rupture
CPT/HCPCS: 74174; 82565; Q9967

== ENCOUNTER 2018-10-10 23:01 | Emergency (ER) | payer OTHER ==
[~2018-10-10] VITALS: Ht 185.4 cm; Wt 101.0 kg
[~2018-10-10 23:01] MED LIST changes: -ASPI-621 PO; +ASPI81TA45 PO; -OMNIPAQUE 350 MG/ML, 100ML BOTTLE ONE
[2018-10-10] MEDS ORDERED: LACO50TA PO (23:09)
[2018-10-10 23:49] LABS: BASOPHILS # (AUTO) 0.03 x10^3/uL (0-0.1); BASOPHILS % (AUTO) 0 % (0-1); EOSINOPHILS # (AUTO) 0.25 x10^3/uL (0-0.4); EOSINOPHILS % (AUTO) 3 % (1-7); LYMPHOCYTES # (AUTO) 1.55 x10^3/uL (1-3.4); LYMPHOCYTES % (AUTO) 18 % (22-44); MD NO; MEAN CORPUSCULAR HEMOGLOBIN 30.6 pg (27.5-34.5); MEAN CORPUSCULAR HGB CONC 34.5 g/dL (33.2-36.2); MEAN CORPUSCULAR VOLUME 88.7 fL (81-97); MEAN PLATELET VOLUME 8.1 fL (7.4-10.4); MONOCYTES # (AUTO) 0.69 x10^3/uL (0.2-0.8); MONOCYTES % (AUTO) 8 % (2-9); NEUTROPHILS # (AUTO) 6.17 x10^3/uL (1.8-6.8); NEUTROPHILS % (AUTO) 71 % (42-75); PLATELET COUNT 160 x10^3/uL (130-400); RED BLOOD COUNT 5.55 x10^6/uL (4.38-5.82); RED CELL DISTRIBUTION WIDTH 13.8 % (9.4-14.8)
[2018-10-10 23:59] LABS: INTERNATIONAL NORMALIZED RATIO 1.05 (0.93-1.1); PROTHROMBIN TIME 11.1 Seconds (9.6-11.5)
[2018-10-11] LABS: ALANINE AMINOTRANSFERASE 29 U/L (12-78); ALBUMIN 3.3 g/dL (3.4-5.0); ANION GAP 6 mmol/L (5-15); CALCIUM 8.4 mg/dL (8.5-10.1); CHLORIDE 108 mmol/L (98-107)
[2018-10-11 00:05] LABS: ALKALINE PHOSPHATASE 110 U/L (45-117); BILIRUBIN,TOTAL 0.3 mg/dL (0.2-1.0); TOTAL PROTEIN 6.4 g/dL (6.4-8.2); TROPONIN I < 0.015 ng/mL (0.000-0.045)
[2018-10-11 00:23] VITALS: BP 158/83
== END 2018-10-11 00:28 | disposition home or self-care (01) ==
LOC: ED 23:32
DX: R07.89 Other chest pain (principal); I11.0 Hypertensive heart disease with heart failure; I50.9 Heart failure, unspecified; Z95.2 Presence of prosthetic heart valve
CPT/HCPCS: 36415; 71045; 80053; 84484; 85025; 85610; 85730; 93005; 99284

== ENCOUNTER → 2018-11-14 | Outpatient (CLI) | payer OTHER ==
[~2018-11-14] MED LIST changes: +LACO50TA PO; +OMNIPAQUE 350 MG/ML, 100ML BOTTLE ONE
== END | disposition home or self-care (01) ==
LOC: PETCFH 11:14
PROVIDERS: ATTEND Urology
DX: K76.0 Fatty (change of) liver, not elsewhere classified (principal); K57.30 Diverticulosis of large intestine without perforation or abscess without bleeding; N28.1 Cyst of kidney, acquired; N32.3 Diverticulum of bladder; Z95.2 Presence of prosthetic heart valve; Z90.79 Acquired absence of other genital organ(s); Z85.46 Personal history of malignant neoplasm of prostate
CPT/HCPCS: 74177; 78306; A9503; Q9967

== ENCOUNTER 2018-11-24 12:22 | Emergency (ER) | payer OTHER ==
[~2018-11-24] VITALS: Ht 182.9 cm; Wt 103.8 kg
[~2018-11-24 12:22] MED LIST changes: -OMNIPAQUE 350 MG/ML, 100ML BOTTLE ONE
[2018-11-24] MEDS ORDERED: MAALOX/HYOSCYAMINE/LIDOCAINE 45 ML BTL ONE (12:46)
[2018-11-24] MEDS ORDERED: LIDOCAINE 2% VISCOUS 15 ML UDC ONE (12:56)
[2018-11-24 13:00] VITALS: BP 143/89
[2018-11-24] MEDS ORDERED: LIDOCAINE 2% VISCOUS 15 ML UDC MM ONE (13:00)
--- NOTE | 2018-11-24 13:02 | NUR ---
PT STATED THAT A SMALL PART OF A PEARSON GOT STUCK IN THE LEFT SIDE OF THIS THROAT YESTERDAY.
--- NOTE | 2018-11-24 13:02 | NUR ---
PT IS ALERT, ORIENTED, WITH NAD. PT MEDICATED PER ORDER.
--- NOTE | 2018-11-24 13:16 | NUR ---
Patient given discharge instructions and they have confirmed that they understand the instructions. Patient ambulatory with steady gait.
== END 2018-11-24 13:19 | disposition home or self-care (01) ==
LOC: ED 12:24
DX: T17.298A Other foreign object in pharynx causing other injury, initial encounter (principal); I11.0 Hypertensive heart disease with heart failure; I50.9 Heart failure, unspecified; X58.XXXA Exposure to other specified factors, initial encounter; Y93.89 Activity, other specified; Y92.89 Other specified places as the place of occurrence of the external cause; Y99.8 Other external cause status
CPT/HCPCS: 99282

== ENCOUNTER 2018-12-10 17:41 | Emergency (ER) | payer OTHER ==
[~2018-12-10] VITALS: Ht 182.9 cm; Wt 105.2 kg
[2018-12-10] MEDS ORDERED: PHEN100C PO (18:08)
[2018-12-10] MEDS ORDERED: KETAMINE 100 MG/ML, 5ML IV ONE (18:30)
[2018-12-10] MEDS ORDERED: SODIUM CHLORIDE FLUSH 10ML SYR IVF ONE (18:30)
[2018-12-10] MEDS ORDERED: KETAMINE 10 MG/ML, 20ML ONE ×2 (18:46→18:48)
[2018-12-10] MEDS ORDERED: DEXAMETHASONE 4 MG/ML, 5ML ONE (19:06)
[2018-12-10] MEDS ORDERED: DEXAMETHASONE 4 MG/ML, 1ML IVPush ONE (19:30)
--- NOTE | 2018-12-10 19:47 | NUR ---
PT TOLERATED THE PROCEDURE WELL. SPOUSE REMAINED AT BEDSIDE. ONE SMALL PLANT AMI WAS ABLE TO BE REMOVED.
[2018-12-10] MEDS ORDERED: ONDANSETRON 2MG/ML, 2ML ONE (19:48)
--- NOTE | 2018-12-10 19:54 | NUR ---
PT VOMITED 200CC BILE. ZOFRAN GIVEN . SITTING UP IN GURNEY WITH COOL CLOTH TO HEAD. SPOUSE AT BEDSIDE.
[2018-12-10] MEDS ORDERED: ONDANSETRON 2MG/ML, 2ML IVPush ONE (20:00)
[2018-12-10 20:53] VITALS: BP 119/74
== END 2018-12-10 18:30 | disposition home or self-care (01) ==
LOC: ED 18:24
DX: T17.228A Food in pharynx causing other injury, initial encounter (principal); I10 Essential (primary) hypertension; X58.XXXA Exposure to other specified factors, initial encounter; Y93.89 Activity, other specified; Y92.89 Other specified places as the place of occurrence of the external cause; Y99.8 Other external cause status
CPT/HCPCS: 42809; 99152; 99285; J1100; J2405

== ENCOUNTER 2019-02-03 02:26 | Emergency (ER) | payer OTHER ==
[~2019-02-03] VITALS: Ht 182.9 cm; Wt 102.0 kg
--- NOTE | 2019-02-03 02:43 | NUR ---
PT C/O CHEST PAIN STARTED AT 2229. PT STATES PAIN IS ON THE RIGHT SIDE OF HIS CHEST AND HE CANNOT TAKE A DEEP BREATH.
[2019-02-03] MEDS ORDERED: ASPI-496 PO (02:44)
[2019-02-03] MEDS ORDERED: PHEN100C PO (02:44)
[2019-02-03] MEDS ORDERED: NITROGLYCERIN SINGLE TAB 0.4 MG SL PRN (03:00)
[2019-02-03 03:09] LABS: BASOPHILS # (AUTO) 0.01 x10^3/uL (0-0.1); BASOPHILS % (AUTO) 0 % (0-1); EOSINOPHILS # (AUTO) 0.26 x10^3/uL (0-0.4); EOSINOPHILS % (AUTO) 3 % (1-7); LYMPHOCYTES # (AUTO) 1.61 x10^3/uL (1-3.4); LYMPHOCYTES % (AUTO) 16 % (22-44); MD NO; MEAN CORPUSCULAR HEMOGLOBIN 30.1 pg (27.5-34.5); MEAN CORPUSCULAR HGB CONC 34.5 g/dL (33.2-36.2); MEAN CORPUSCULAR VOLUME 87.2 fL (81-97); MEAN PLATELET VOLUME 7.8 fL (7.4-10.4); MONOCYTES # (AUTO) 0.69 x10^3/uL (0.2-0.8); MONOCYTES % (AUTO) 7 % (2-9); NEUTROPHILS # (AUTO) 7.58 x10^3/uL (1.8-6.8); NEUTROPHILS % (AUTO) 75 % (42-75); PLATELET COUNT 163 x10^3/uL (130-400); RED BLOOD COUNT 5.87 x10^6/uL (4.38-5.82)
[2019-02-03 03:17] LABS: INTERNATIONAL NORMALIZED RATIO 1.02 (0.93-1.1); PROTHROMBIN TIME 10.7 Seconds (9.6-11.5)
[2019-02-03 03:20] LABS: ALBUMIN 3.7 g/dL (3.4-5.0); ANION GAP 5 mmol/L (5-15); CALCIUM 8.4 mg/dL (8.5-10.1); CHLORIDE 110 mmol/L (98-107)
[2019-02-03 03:23] VITALS: BP 153/83
[2019-02-03 03:24] LABS: TROPONIN I < 0.015 ng/mL (0.000-0.045)
--- NOTE | 2019-02-03 03:28 | NUR ---
PT BACK FROM CT IN NAD
--- NOTE | 2019-02-03 04:11 | NUR ---
Patient/Caregiver given discharge instructions and they have confirmed that they understand the instructions. Patient ambulatory with steady gait.
[2019-02-03] MEDS ORDERED: OMNIPAQUE 350 MG/ML, 100ML BOTTLE ONE (05:29)
== END 2019-02-03 04:12 | disposition home or self-care (01) ==
LOC: ED 03:11
DX: R07.1 Chest pain on breathing (principal); R06.00 Dyspnea, unspecified; F20.9 Schizophrenia, unspecified; Z95.2 Presence of prosthetic heart valve
CPT/HCPCS: 36415; 71045; 71275; 74174; 80048; 82040; 83690; 83880; 84484; 85025; 85610; 93005; 99284; Q9967